=== PATIENT | male | born 1955 | race Caucasian/White ===

== ENCOUNTER 2016-09-27 14:28 | Observation (INO) | payer OTHER ==
[~2016-09-27] VITALS: Ht 170.2 cm; Wt 94.1 kg
[2016-09-27 14:44] VITALS: BP 105/51; PULSE 61; RESP 20; O2SAT 96
--- NOTE | 2016-09-27 15:03 | ED.REPORT ---
HPI-Chest Pain 40 and Over Date of Service Sep 27, 2016 ED Provider: Erick Mckeon MD This is a 61 year old male with a history of UT, atrial fibrillation, CABG, DM, HTN, hyperlipidemia presenting to the emergency department due to an episode of chest pain that occurred just prior to arrival and lasted approximately 20 minutes. Chest pain described as a dull ache. Patient was [facility] from [facility], he experienced CP there associated with mild dyspnea and weakness and was consequently sent to the ED. He adds that chest pain has been ongoing for the past two months. He experiences similar episodes intermittently. Denies nausea, vomiting, diaphoresis, or palpitations at this time. Nursing Notes Stated Complaint: CHEST PAIN Chief Complaint: Chest Pain Nursing Notes Reviewed: Yes Allergies: Coded Allergies: gentamicin (Verified Allergy, Unknown, 09/27/16) Scheduled Aspirin Chew (Aspirin Chew) 81 Mg Chew 81 MG PO HS Atorvastatin (Lipitor) 20 Mg Tablet 20 MG PO HS Escitalopram Oxalate (Escitalopram Oxalate) 20 Mg Tablet 10 MG PO QAM Glipizide (Glipizide) 5 Mg Tablet 2.5 MG PO QAM Isosorbide MN ER (Isosorbide MN ER) 60 Mg Tab.er.24h 30 MG PO QAM Lisinopril (Lisinopril) 5 Mg Tablet 5 MG PO QAM Metoprolol Tartrate (Metoprolol Tartrate) 25 Mg Tablet 25 MG PO BID Multivit with Calcium,Iron,Min (Therapeutic M) 1 Each Tablet 1 EACH PO DAILY [place]-3/Dha/Epa/Fish Oil (Fish Oil 1,000 mg Softgel) 1 Each Capsule 1 EACH PO BID Ubidecarenone (Coenzyme Q10) 200 Mg Capsule 200 MG PO BID Scheduled PRN Acetaminophen (Acetaminophen) 325 Mg Tablet 650 MG PO Q4H PRN PRN For Fever Omeprazole (Omeprazole) 20 Mg Capsule.dr 20 MG PO DAILY PRN PRN For Dyspepsia or Heartburn General Time Seen by MD: 14:54 Chief Complaint Chest pain Hx Obtained From: Patient Arrived By: Walk-in Sudden in Onset?: Yes Onset Occurred: More than a week ago... (2 months) Symptom Duration: Since onset Severity: Current: Mild Pertinent Negative: Pt denies other symptoms Recent Healthcare: No recent doctor visit, No recent hospitalization Similar Sx Previous: No Risk Factors )( CAD Risk Stratification Diabetes mellitus Hyperlipidemia Hypertension Risk factors reviewed Past Medical History Past Medical History Atrial fibrillation UT Reports: Diabetes mellitus, Hyperlipidemia, Hypertension Past Surgical History CABG Ambulatory Status Independent Review of Systems Constitutional: Denies: Chills, Fever Cardiovascular: Reports: Chest pain GI: Denies: Abdominal pain, Nausea, Vomiting Skin: Denies Diaphoresis Neurologic: Denies: Headache Complete sys rev & neg: except as marked. Physical Exam Initial Vital Signs Vital Signs (First) Date Time Temp Pulse Resp B/P Pulse Ox O2 Delivery O2 Flow Rate FiO2 09/27/16 14:44 36.4 61 20 105/51 96 Room Air Initial VS: Reviewed Head / Eyes: Atraumatic, Normocephalic, PERRL ENT: Mucous membranes moist, Conjunctiva normal, No scleral icterus Neck: Supple, Non-tender, Full range of motion Extremities: Vascular intact, Neuro intact, No swelling, No tenderness Skin: Warm, Dry, No cyanosis Neurologic: Alert, Oriented, Nonfocal Psychiatric: Mood/affect normal, Behavior normal, Normal thought content General/Constitutional: Awake, Alert Respiratory / Chest: Breath sounds NL, Breath sounds = bilat, No respiratory distress, No rales, No rhonchi, No wheezing CP reproducible on palpation Cardiovascular: Heart rate NL, Regular rhythm, Heart sounds NL, No murmurs, Peripheral circulation NL, Pulses = bilaterally, No gross BP differential Abdomen: Soft, Non-tender, McBurney's non-tender, No guarding, No rebound, BS normoactive, No distention, No hernia, No palpable mass Interpretation & Diagnostics Lab Results Interpretation Result Diagram: 09/27/16 1455 09/27/16 1455 Test 09/27/16 14:55 White Blood Count 8.8th/mm3 (3.8-10.1) Red Blood Count 5.21mil/mm3 (4.40-5.80) Hemoglobin 15.0g/dL (13.8-17.2) Hematocrit 44.2% (41.0-50.0) Mean Corpuscular Volume 84.8fL (81-100) Mean Corpuscular Hemoglobin 28.8pg (27.0-35.0) Mean Corpuscular Hemoglobin Concent 33.9% (32.0-37.0) Red Cell Distribution Width 12.6% (12.3-15.4) Platelet Count 243bil/L (150-400) Neutrophils (%) (Auto) 59.5% (40-74) Lymphocytes (%) (Auto) 29.7% (14-46) Monocytes (%) (Auto) 8.4% (4-12) Eosinophils (%) (Auto) 1.5% (0-5) Basophils (%) (Auto) 0.7% (0-3) Sodium Level 138mEq/L (134-144) Potassium Level 4.2mEq/L (3.5-5.2) Chloride Level 99mEq/L (97-108) Carbon Dioxide Level 23mmol/L (18-29) Blood Urea Nitrogen 23mg/dL (8-27) Creatinine 0.86mg/dL (0.76-1.27) Estimat Glomerular Filtration Rate 96mL/min (>59) Glucose Level 153mg/dL (60-99) Calcium Level 9.5mg/dL (8.5-10.1) Magnesium Level 2.1mg/dL (1.6-2.6) Total Bilirubin 0.3mg/dL (0.0-1.2) Aspartate Amino Transf (AST/SGOT) 15U/L (0-50) Alanine Aminotransferase (ALT/SGPT) 27U/L (0-44) Alkaline Phosphatase 72U/L (25-160) Total Creatine Kinase 45U/L (21-232) Creatine Kinase MB 1.4ng/mL (0.0-10.4) Creatine Kinase MB % % (0.0-5.0) Troponin T < 0.010ug/L (0.0-0.011) Pro-B-Type Natriuretic Peptide 605.4pg/mL (0-210) Total Protein 7.1g/dL (6.4-8.4) Albumin 4.3g/dL (3.4-5.0) Thyroid Stimulating Hormone (TSH) 1.830uIU/mL (0.450-4.500) Hold Henriquez Top Tube Received (Received) ECG Interpretation ECG Interpretation: A-fib at a rate of 79 Time: 15:11 Interpreted by: ED physician X-Ray Chest Interpretation Chest Xray Interpretation: IMPRESSION: Negative chest. No acute cardiopulmonary process is evident. Dictated by: Jeet Paris M.D. on 09/27/2016 at 14:37 Approved by: Jeet Paris M.D. on 09/27/2016 at 14:38 Re-Eval/Medical Decision Med Decision/Clinical Course 61-year-old male history of CAD, 5 vessel bypass presenting with substernal chest pain earlier today with associated shortness of breath. EKG changes. First set troponins negative. We will admit for ACS rule out. 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 I, Dr. Mckeon personally performed the history, physical exam and medical decision-making; I reviewed and confirmed the accuracy of the information in the transcribed note. Signed by Naresh Knox, 09/27/2016 at 17:00. Erick Mckeon MD Sep 27, 2016 15:03 DUARTE BATISTA Sep 27, 2016 15:08
[2016-09-27 15:07] LABS: BASOPHILS % (AUTO) 0.7 % (0-3); EOSINOPHILS % (AUTO) 1.5 % (0-5); MONOCYTES % (AUTO) 8.4 % (4-12); Mean Corpuscular Hemoglobin 28.8 pg (27.0-35.0); Mean Corpuscular Volume 84.8 fL (81-100); NEUTROPHILS % (AUTO) 59.5 % (40-74); Platelet Count 243 bil/L (150-400)
--- NOTE | 2016-09-27 15:40 | DRSVH ---
PROCEDURE: X-RAY CHEST ONE VIEW, PORTABLE ([id number]) INDICATIONS: CHEST PAIN TECHNIQUE: One view of the chest was acquired. COMPARISON: None. FINDINGS: Surgical changes and devices: Postoperative changes are present related to a prior median sternotomy. Lungs and pleura: No pleural effusions or pneumothorax. Lungs are clear. Mediastinum: Mediastinal contours appear normal. Heart size is normal. Bones and chest wall: No suspicious bony lesions. Overlying soft tissues appear unremarkable. IMPRESSION: Negative chest. No acute cardiopulmonary process is evident. Dictated by: Jeet Paris M.D. on 09/27/2016 at 14:37 Approved by: Jeet Paris M.D. on 09/27/2016 at 14:38
[2016-09-27 15:45] LABS: Magnesium 2.1 mg/dL (1.6-2.6)
[2016-09-27 15:47] LABS: TROPONIN T < 0.010 ug/L (0.0-0.011)
[2016-09-27 16:25] VITALS: BP 108/47; PULSE 95; RESP 20; O2SAT 96
[2016-09-27] MEDS ORDERED: Senna-Docusate 8.6-50 mg Tablet PO PRN (16:25)
[2016-09-27] MEDS ORDERED: Polyethylene Glycol (PEG) 17 Gm Powder PO PRN (16:25)
[2016-09-27] MEDS ORDERED: Ondansetron 2 mg/mL 2 mL Inj IVPUSH PRN (16:25)
[2016-09-27] MEDS ORDERED: Alum-Mag Hydrox-Simeth 30 mL Suspension PO PRN (16:25)
[2016-09-27] MEDS: Sodium Chloride LOK Flush 10 mL Syringe IVFLUSH SCH (16:30)
[2016-09-27] MEDS ORDERED: OMEP20CA11 PO (16:55)
[2016-09-27] MEDS ORDERED: ESCI20TA38 PO (16:55)
[2016-09-27] MEDS ORDERED: ACET325T51 PO (16:55)
[2016-09-27] MEDS ORDERED: ISOS60TA2 PO (16:55)
[2016-09-27] MEDS ORDERED: LISI-571 PO (16:55)
[2016-09-27] MEDS ORDERED: GLPZ5T PO (16:55)
[2016-09-27] MEDS ORDERED: METO25TA6 PO (16:55)
[2016-09-27] MEDS ORDERED: OMEG-38 PO (16:55)
[2016-09-27] MEDS ORDERED: UBID200C PO (16:55)
[2016-09-27] MEDS ORDERED: ASPI81TA3 PO (16:55)
[2016-09-27] MEDS ORDERED: MULT-140 PO (16:55)
[2016-09-27] MEDS ORDERED: ATOR20TA PO (16:55)
--- NOTE | 2016-09-27 17:22 | PCM.HPMED ---
Subjective Date of Service Sep 27, 2016 Primary Provider: Admitting Physician: Felipe Trujillo MD Primary Care Physician: Other,Physician Attending Physician: Felipe Trujillo MD Chief Complaint: Chest pain History of Present Illness: This is a 61 years old male with past medical history: Artery disease status post bypass, hypertension, hypercholesterolemia, type II diabetes non- insulin-dependent, who presented on today via clinic complaining about of chest pain. This and stated chest pain has been going on on and off for approximately 2 -3 months . Chest pain is pressure-like, retrosternal, non radiating, associated with shortness of breath on exertion. He stated initially to chest pain was on exertion as well as shortness of breath but lately has been at rest s as well. From the patient was sent to the emergency room for further evaluation. An EKG done at the [place] [facility] show atrial fibrillation. Patient has a remote history of atrial fibrillation back in 2008 after his bypass surgery. 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 Patient has not had adequate follow-up for many years due to insurance issues. He was admitted at it a bit more than a year ago at [facility] in [place] after he had a syncopal episode, felt and has\d a laceration on his forehead. He does not have a good collection performed was done there about the syncope but he was told that one of the artery on his bypass is occluded. Patient does not recall whether he had a cardiac catheterization done at that time but he said he did not have a stent placed. Patient has multiple risk factors including personal history of coronary artery disease, hypercholesterolemia, diabetes, truncal obesity and noncompliance . He is being kept kept to the hospital to rule out ACS and for further workup for new onset atrial fibrillation. Review of Systems: Review of systems 12 points is negative except for chest pain as described above in history of present illness Allergies Coded Allergies: gentamicin (Verified Allergy, Unknown, 09/27/16) Home Medications Aspirin 81 mg orally daily, glipizide 10 mg orally daily, metoprolol 25 mg orally twice a day, is unable to nitrate ER 60 mg orally daily, simvastatin 20 mg orally daily, lisinopril 5 mg orally daily, esomeprazole 20 mg orally daily, CoQ10 1 tablet daily, multivitamin 1 tablet orally daily, escitalopram 20 mg orally daily PMH Atrial fibrillation Con artery disease status post CABG Diabetes mellitus, Hyperlipidemia, Hypertension Surgical History Bypass graft, Inguinal and umbilical hernia repair Family History Family history reviewed and is pertinent for coronary artery disease, hypertension and diabetes Social History Hx Alcohol Use: No Hx Substance Use: No Living Arrangement: with Family (patient lives with his and children) Exam Vital Signs Vital Sign - Last Date Time Temp Pulse Resp B/P Pulse Ox O2 Delivery O2 Flow Rate FiO2 09/27/16 16:25 95 20 108/47 96 Room Air 09/27/16 14:44 36.4 Exam General/Constitutional: Well-nourished male. In stretcher comfortably. Pleasant Head / Eyes: Atraumatic, Normocephalic, PERRL. sclera is anicteric ENT: Mucous membranes moist, no oral thrush. No bulging tympanic membrane Neck: Supple, Non-tender, Full range of motion. Trachea is midline. No JVD Chest: Normal respiratory efforts. No chest wall tenderness. Midline surgical scar compatible with history of open heart surgery Cardiovascular: S1, S2 irregular rate , no murmur, no gallop. No peripheral edema Lungs: Clear bilaterally to auscultation, No rhonchi, No wheezing Abdomen: Soft, nontender tender, non-distended. No palpable mass. Bowel sounds normal all quadrant Extremities: No edema, no cyanosis, no calf tenderness Skin: Warm, Dry, No rash, no ulcers Neurologic: Alert, Oriented, grossly nonfocal Psychiatric: Mood/affect normal, Behavior normal Lab and Diagnostics Result Diagram: 09/27/16 1455 09/27/16 1455 X-Rays, CTs and MRIs Chest X-ray reviewed ; : Negative chest. No acute cardiopulmonary process is evident. 12-lead ECG Atrial fibrillation Assessment & Plan 1. Chest pain r/o ACS : - Telemetry monitoring. EKG shows Atrial Fibrillation - Cardiac enzymes x 3 . 1st set is negative. - 12 leads EKG for worsening chest pain or recurrent chest pain - Sublingual nitroglycerine for chest pain . - Continue Aspirin, beta michelle and statins from home medications - Stress test in AM . - Lipid profile , TSH, Hb A1c . - 2. Atrial Fibrillation : New onset / - Patient has a remote brief history of atrial fibrillation following cardiac bypass surgery in 2008 and was on Coumadin for a brief period of time . - Will obtain echocardiography . - Start Lovenox subcutaneously . Rate is under control. - Will consult cardiology 3. H/o CAD s/p CABG Patient did not have proper follow up for several years beyond hospitalization . the last time for a syncopal episode at [facility] in [place] . He was told one of his artery his by pass graft was completely blocked . He is unsure about if he had cardiac cath though . Continue ASA , statins and BB for medications 4. Type II Diabetes , non insulin dependent . - His blood sugar seems to be controlled with glipizide . Per patient last A1c was around 7 . some months ago. ? -A1c is pending . - Diabetic diet and start low sliding scale insulin. 5. Hypercholesterolemia : on statins - Lipid profile pending. Hemodynamically and clinically stable. This in an initial plan of care for now and will be adjusted per clinical course and per findings of the above tests . VTE Prophylaxis: Other (Therapeutic anticoagulation with Lovenox ) Resuscitation Status: CPR: Attempt Resuscitation Time spent 75 minutes Felipe Trujillo MD Sep 27, 2016 17:22
--- NOTE | 2016-09-27 17:22 | NUR ---
Admit Patient admitted to [facility] via richie, A/O x3. Denies any chest pain or tightness at this time. Ambulatory in his room, denies SOB. Oriented to room and unit. Made comfortable, will continue to monitor for any chest pain.
[2016-09-27 17:26] LABS: Creatine Kinase 45 U/L (21-232)
[2016-09-27 18:17] VITALS: PULSE 115
[2016-09-27 18:31] VITALS: BP 121/70; PULSE 87; RESP 20; O2SAT 95
[2016-09-27 20:00] VITALS: PULSE 94
[2016-09-27 20:07] VITALS: BP 114/72; PULSE 88; RESP 20; O2SAT 94
[2016-09-27] MEDS: Insulin Human REGular 300 Unit/3 mL Inj SUBQ SCH ×2 (20:30→21:08)
[2016-09-27 23:28] LABS: Creatine Kinase 37 U/L (21-232)
[2016-09-28 00:12] VITALS: BP 120/75; PULSE 88; RESP 22; O2SAT 95
[2016-09-28] MEDS: Sodium Chloride LOK Flush 10 mL Syringe IVFLUSH SCH ×3 (03:29→16:30)
[2016-09-28 04:31] VITALS: BP 134/88; PULSE 98; RESP 22; O2SAT 94
--- NOTE | 2016-09-28 06:34 | NUR ---
DENIES CHEST PAIN Patient has had no issues over night. Denies chest pain or SOB. Provided book on angina. Remains in Afib 80-90s.
[2016-09-28] MEDS: Insulin Human REGular 300 Unit/3 mL Inj SUBQ SCH ×3 (08:00→17:30)
[2016-09-28 08:44] VITALS: BP 143/77; PULSE 92; RESP 15; O2SAT 96
--- NOTE | 2016-09-28 08:53 | NUR ---
Stress Test Patient off to stress test at [facility].
[2016-09-28 10:20] VITALS: PULSE 98
--- NOTE | 2016-09-28 10:50 | NUR ---
Morning medications Notified Dr Erick Blair and aware patient 's morning medications held until patient gets back from stress test, will follow orders. Blood sugar 204 this morning and patient has been NPO, Hospitalist aware, orders to recheck blood sugar and follow sliding scale when back from stress test.
--- NOTE | 2016-09-28 11:01 | NUR ---
SW attempted to meet with Pt this morning for screening note, Pt at stress test. SW to follow up after testing is completed. SHALOM Ontiveros Rocket Assembly Operator
--- NOTE | 2016-09-28 11:24 | NUR ---
Social Work Note - Screening: D/A: The Pt is a 61 y/o male that was admitted under observation status for chest pain. Readmission Risk Score 2. The Pt's PCP is MD Alexander at the [facility] and his insurance is [employer]. EMR reviewed. SW met with the Pt to explain role and discuss discharge planning, SW telephone number written on white board. The Pt lives independently at home in [place] with his . The Pt does not have an Advanced Directive, paperwork provided. Cardiology involved. Stress test completed, results pending. The Pt denies any needs at this time, SW to follow if needs arise. P: The Pt is not medically ready for discharge at this time, stress test results pending. Pt likely to discharge home when ready with to providing POV transportation. The Pt denies any needs at this time, SW to follow if needs arise. Lorena Bolivar, PANTS MAKER Canal Driver
[2016-09-28 12:28] VITALS: BP 120/79; PULSE 85; RESP 15; O2SAT 96
--- NOTE | 2016-09-28 14:46 | DRSVH ---
[facility] [address] [place] [address] Echocardiogram Report Name: LUCI DILL JStudy Date: 09/28 Height: 66 in Hospital Exam Location: [facility] Weight: 207 lb Gender: Male BSA: 2.0 m2 : 1955 Age: 61 yrs BP: 134/88 mmHg Reason For Study: NEW ONSET A-FIB. Ordering Physician: HOSPITALIST [facility] Performed By: Bipin Iverson Referring Physician: DR. YANE CLAROS ([facility]) Interpretation Summary The left ventricle is normal in size. The ejection fraction is estimated to be 55-60%. The right ventricle is mildly dilated. The right ventricular systolic function is normal. There is moderate to severe mitral regurgitation. There is moderate tricuspid regurgitation. The right ventricular systolic pressure is estimated at 33 mmHg assuming a right atrial pressure of 8 mm Hg. Procedure: A two-dimensional transthoracic echocardiogram with color flow and Doppler was performed. The study quality was technically adequate. The apical views were difficult to obtain and are suboptimal in quality. The subcostal views were difficult to obtain and are suboptimal in quality. A contrast injection of Definity was performed to improve assessment of LV function. Contrast was injected into an intravenous site in the left arm. A total of 4 cc of contrast was given. There is no prior echocardiogram noted for this patient. The patient was in atrial fibrillation with controlled ventricular rate during the exam. The patient did well with the Definity Contrast. The heart rate ranged between 79-94 bpm during the study. Left Ventricle: The left ventricle is normal in size. Left ventricular wall thickness is mildly increased. Proximal septal thickening is noted. There is no echo evidence for significant left ventricular outflow tract obstruction. There is no thrombus. A false chord is noted (normal variant). The ejection fraction is estimated to be 55-60%. There is basal inferoseptal wall severe hypokinesis. There is basal inferior wall severe hypokinesis. Diastolic function could not be accurately assessed due to atrial fibrillation. Right Ventricle: The right ventricle is mildly dilated. The right ventricular systolic function is normal. Atria: The left atrium is moderately dilated. The right atrium is mildly dilated. There is no Doppler evidence for an atrial septal defect. Mitral Valve: The mitral valve leaflets appear mildly thickened, but open well. The mitral valve leaflets are mildly calcified. There is mild mitral annular calcification. There is moderate to severe mitral regurgitation. The mitral regurgitant jet is eccentrically directed. Aortic Valve: The aortic valve is trileaflet. The aortic valve opens well. The aortic valve is mildly calcified. There is no aortic valve stenosis. No aortic regurgitation is present. Tricuspid Valve: The tricuspid valve leaflets are thin and pliable. There is moderate tricuspid regurgitation. The right ventricular systolic pressure is estimated at 33 mmHg assuming a right atrial pressure of 8 mm Hg. Pulmonic Valve: The pulmonic valve leaflets are thin and pliable; valve motion is normal. There is mild pulmonic regurgitation. Great Vessels: The aortic root is normal size. The dimensions of the ascending aorta are normal. The pulmonary artery is normal size. The IVC is dilated (diameter is greater than 2.1 cm) yet it collapses greater than 50% with a sniff. This suggests a right atrial pressure of 8 mm Hg. Pericardium/ Pleura There is no pericardial effusion. There is an anterior echo-free space consistent with a fat pad. There is no pleural effusion. MMode/2D Measurements & Calculations LVIDd: 5.2 cm LA dimension: 4.9 cm RA long axis LVOT diam: 2.2 cm LVIDs: 3.7 cm AoV Opening FS: 28.6 % LA A2 area: 20.4 cm RA area EPSS: 0.69 cm LA A4 area: 22.4 cm Ao root diam IVSd: 1.2 cm LA length (vol) : 21.3 cm LVPWd: 1.3 cm RA vol Aortic Jxn: 2.6 cm LA vol: 57.6 ml : 71.0 ml asc Aorta Diam LA vol index RA : 35.0 mm2 Ao Arch Diam (Prox Trans): 2.9 cm IVC diam: 2.3 cm LV zamora. diameter/BSA LV sys. diameter/BSA (cm/m^2): 2.6 (cm/m^2): 1.8 Doppler Measurements & Calculations Ao V2 max MV E max pablo Med Peak E' Pablo TR max pablo : 139.7 cm/sec : 103.7 cm/sec : 250.6 cm/sec Ao max P.8 mmHg E/E' med: 8.4 TR max PG Ao mean P.4 mmHg MR ERO: 0.26 cm2 Lat Peak E' Pablo : 25.2 mmHg LVOT Max Pablo PA V2 max : 87.1 cm/sec E/E' lat: 7.0 : 113.8 cm/sec E/e' average: 7.7 PA mean PG LUIS FERNANDO(I,D): 2.4 cm sev ratio: 0.63 PA Accel Time : 0.08 sec Ao V2 mean LV V1 max PG MR flow rate PA V2 mean : 101.0 cm/sec : 74.3 cm/sec Ao V2 VTI: 24.4 cm LV V1 VTI: 15.3 cm: 135.5 cm3/sec MR PISA radius LUIS FERNANDO(V,D): 2.4 cm2 LUIS FERNANDO indexed to BSA (cm^2/m^2): 1.2 Reading Physician:PM
--- NOTE | 2016-09-28 16:04 | DRSVH ---
PROCEDURE: 1 DAY TREADMILL STRESS TEST Rest and exercise myocardial perfusion SPECT with gated imaging and ejection fraction RADIOPHARMACEUTICAL: 10.85 mCi Tc-99m tetrafosmin IV at rest and 32.1 mCi Tc-99m tetrafosmin IV at pe ak exercise. [id number] was performed. INDICATIONS: CHEST PAIN TECHNIQUE: Radiopharmaceutical was injected at peak stress test, and also at rest. SPECT images wer e obtained. SPECT myocardial perfusion images were displayed in short axis, horizontal long axis, an d vertical long axis views. Gated images were reviewed using AutoQUANT software. COMPARISON: None. CARDIAC STRESS: A standard Alex treadmill exercise tolerance test was performed by the patient under the supervision of an attending staff. The patient exercised for 4 minutes and 4 seconds; functional aerobic impair ment (DAVID) is +50 %. Hemodynamic data: There is normal blood pressure and heart rate response to exercise stress. Valdemar t achieved 104% of maximum predicted heart rate at peak exercise. Symptoms: Patient denied any chest pain during the treadmill study but did complain of flight weight ed and lightheadedness during the study. The patient's symptoms resolved during recovery. EKG: There were to [address] depressions along the lateral leads. FINDINGS: Raw data: There is good myocardial labeling by radiotracer. No significant motion artifacts. Left ventricle function: Gated images demonstrate hypokinesis along the inferior wall and possible a pical segments. The left ventricle resting end-diastolic volume is 137 mL. Left ventricle stress e jection fraction is 38%; normal values are above 45%. Myocardial perfusion: There is a mild perfusion defect along the basal and mid inferior wall which i s noted during the supine resting imaging. On the supine and prone stress images, there is a perfusio n defect with moderate intensity in the same segments. IMPRESSION: This is at least mildly abnormal myocardial perfusion study. There is a small to moderat e-sized perfusion defect that improves from stress to rest. Defect is most likely consistent with jey or small myocardial infarction with some evidence of abigail-infarct ischemia. There is also evidence fo r hypokinesis along the inferior wall and possibly apical segments and there is at least moderately r educed LVEF 38%. The patient stress EKG was mildly positive with ST changes. Patient denied any chest pain during the treadmill study but did have other complaints such as lightheadedness during the rubia admill study which resolved during the recovery stage. Clinical correlation is recommended to see pat ient should purse with more aggressive medical management versus a repeat cardiac catheterization. Dictated by: Rajan Feliciano Jr., M.D. on 09/28/2016 at 15:54 Approved by: Rajan Feliciano Jr., M.D. on 09/28/2016 at 16:03
[2016-09-28 16:13] VITALS: BP 118/80; PULSE 94; RESP 15; O2SAT 96
--- NOTE | 2016-09-28 16:55 | PCM.DIMED ---
Discharge Instructions Date of Service Sep 28, 2016 Dates of Hospitalization Sep 27, 2016 at 16:28 Discharge Diagnosis Discharge Diagnosis 1. Chest pain: Cardiac stress test showed evidence of mild ischemia. This is NOT a heart attack, but may be evident of heart disease. Further evaluation is needed, FU with PCP for referral to cardiology. Likely cardiac stress testing will be required. 2. Atrial fibrillation: Initially noted on PCP office, and has persistent today. Plan for close FU. As we are not sure of insurance coverage related to various anticoagulation agent, and the condition is of new onset, it is not unreasonable to delay initiation of anticoagulation therapy for another 1-2 days. If there is any difficulty scheduling FU or obtaining anticoagulation please call hospital to contact me (Dr Garcia, Red team). 3. Hypertension: Remains in reasonable control. Recent change in BP medications may require further adjustment. Test Results Date of Service: 09/28/16 0809 PROCEDURE: 1 DAY TREADMILL STRESS TEST Rest and exercise myocardial perfusion SPECT with gated imaging and ejection fraction RADIOPHARMACEUTICAL: 10.85 mCi Tc-99m tetrafosmin IV at rest and 32.1 mCi Tc- 99m tetrafosmin IV at peak exercise. [id number]-[id number] was performed. INDICATIONS: CHEST PAIN IMPRESSION: This is at least mildly abnormal myocardial perfusion study. There is a small to moderate-sized perfusion defect that improves from stress to rest. Defect is most likely consistent with prior small myocardial infarction with some evidence of abigail-infarct ischemia. Dictated by: Rajan Feliciano Jr., M.D. on 09/28/2016 at 15:54 Echocardiogram Report Reason For Study: NEW ONSET A-FIB. Ordering Physician: [facility] Performed By: Olive Iverson Referring Physician: DR. AKUA CLAROS ([facility]) Interpretation Summary The left ventricle is normal in size. The ejection fraction is estimated to be 55-60%. The right ventricle is mildly dilated. The right ventricular systolic function is normal. There is moderate to severe mitral regurgitation. There is moderate tricuspid regurgitation. The right ventricular systolic pressure is estimated at 33 mmHg assuming a right atrial pressure of 8 mm Hg. 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 Ag Garcia DO Sep 28, 2016 16:55
--- NOTE | 2016-09-28 17:04 | PCM.DC.MED ---
Discharge Summary Date of Service Sep 28, 2016 Dates of Hospitalization Date of Hospital Admission Sep 27, 2016 at 16:28 Date of Discharge: Sep 28, 2016 Providers: Admitting Physician: Felipe Trujillo MD Primary Care Physician: Other,Physician Attending Physician: Felipe Trujillo MD Diagnosis at Time of Discharge Diagnosis at Time of Discharge 1. Chest pain: Cardiac stress test showed evidence of mild ischemia. This is NOT a heart attack, but may be evident of heart disease. Further evaluation is needed, FU with PCP for referral to cardiology. Likely cardiac stress testing will be required. 2. Atrial fibrillation: Initially noted on PCP office, and has persistent today. Plan for close FU. As we are not sure of insurance coverage related to various anticoagulation agent, and the condition is of new onset, it is not unreasonable to delay initiation of anticoagulation therapy for another 1-2 days. If there is any difficulty scheduling FU or obtaining anticoagulation please call hospital to contact me (Dr Garcia, Red team). 3. Hypertension: Remains in reasonable control. Recent change in BP medications may require further adjustment. Procedures XRay, CTs & MRIs Chest X-ray reviewed ; : Negative chest. No acute cardiopulmonary process is evident. ECG 12 Lead Atrial fibrillation Cardiac Echo Impression Echocardiogram Report Name: LUCI DILL JStudy Date: 0 09/28 Height: 66 in Hospital Exam Location: [facility] Weight: 207 lb Gender: Male BSA: 2.0 m2 : 1955 Age: 61 yrs BP: 134/88 mmHg Reason For Study: NEW ONSET A-FIB. Ordering Physician: [facility] Performed By: Bipin Iverson Referring Physician: DR. AKUA CLAROS ([facility]) Interpretation Summary The left ventricle is normal in size. The ejection fraction is estimated to be 55-60%. The right ventricle is mildly dilated. The right ventricular systolic function is normal. There is moderate to severe mitral regurgitation. There is moderate tricuspid regurgitation. The right ventricular systolic pressure is estimated at 33 mmHg assuming a right atrial pressure of 8 mm Hg. Invasive Procedures Patient Name: LUCI DILL MR#: [id number] Location: [facility] [place] Ordering Phys: Felipe Trujillo MD Date of Service: 09/28/16 0809 PROCEDURE: 1 DAY TREADMILL STRESS TEST Rest and exercise myocardial perfusion SPECT with gated imaging and ejection fraction RADIOPHARMACEUTICAL: 10.85 mCi Tc-99m tetrafosmin IV at rest and 32.1 mCi Tc- 99m tetrafosmin IV at peak exercise. [id number]-aav-cieyxpod was performed. INDICATIONS: CHEST PAIN TECHNIQUE: Radiopharmaceutical was injected at peak stress test, and also at rest. SPECT images were obtained. SPECT myocardial perfusion images were displayed in short axis, horizontal long axis, and vertical long axis views. Gated images were reviewed using [employer] software. COMPARISON: None. CARDIAC STRESS: A standard Alex treadmill exercise tolerance test was performed by the patient under the supervision of an attending staff. The patient exercised for 4 minutes and 4 seconds; functional aerobic impairment (DAVID) is +50 %. Hemodynamic data: There is normal blood pressure and heart rate response to exercise stress. Patient achieved 104% of maximum predicted heart rate at peak exercise. Symptoms: Patient denied any chest pain during the treadmill study but did complain of flight weighted and lightheadedness during the study. The patient's symptoms resolved during recovery. EKG: There were to [address] depressions along the lateral leads. FINDINGS: Raw data: There is good myocardial labeling by radiotracer. No significant motion artifacts. Left ventricle function: Gated images demonstrate hypokinesis along the inferior wall and possible apical segments. The left ventricle resting end- diastolic volume is 137 mL. Left ventricle stress ejection fraction is 38%; normal values are above 45%. Myocardial perfusion: There is a mild perfusion defect along the basal and mid inferior wall which is noted during the supine resting imaging. On the supine and prone stress images, there is a perfusion defect with moderate intensity in the same segments. IMPRESSION: This is at least mildly abnormal myocardial perfusion study. There is a small to moderate-sized perfusion defect that improves from stress to rest. Defect is most likely consistent with prior small myocardial infarction with some evidence of abigail-infarct ischemia. There is also evidence for hypokinesis along the inferior wall and possibly apical segments and there is at least moderately reduced LVEF 38%. The patient stress EKG was mildly positive with ST changes. Patient denied any chest pain during the treadmill study but did have other complaints such as lightheadedness during the treadmill study which resolved during the recovery stage. Clinical correlation is recommended to see patient should purse with more aggressive medical management versus a repeat cardiac catheterization. Dictated by: Rajan Feliciano Jr., M.D. on 09/28/2016 at 15:54 Approved by: Rajan Feliciano Jr., M.D. on 09/28/2016 at 16:03 Brief History This is a 61 years old male with past medical history: Artery disease status post bypass, hypertension, hypercholesterolemia, type II diabetes non- insulin-dependent, who presented on today via clinic complaining about of chest pain. This and stated chest pain has been going on on and off for approximately 2 -3 months . Chest pain is pressure-like, retrosternal, non radiating, associated with shortness of breath on exertion. He stated initially to chest pain was on exertion as well as shortness of breath but lately has been at rest s as well. From the patient was sent to the emergency room for further evaluation. An EKG done at the [place] clinic show atrial fibrillation. Patient has a remote history of atrial fibrillation back in 2008 after his bypass surgery. 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 Patient has not had adequate follow-up for many years due to insurance issues. He was admitted at it a bit more than a year ago at [facility] in [place] after he had a syncopal episode, felt and has\d a laceration on his forehead. He does not have a good collection performed was done there about the syncope but he was told that one of the artery on his bypass is occluded. Patient does not recall whether he had a cardiac catheterization done at that time but he said he did not have a stent placed. Patient has multiple risk factors including personal history of coronary artery disease, hypercholesterolemia, diabetes, truncal obesity and noncompliance . He is being kept kept to the hospital to rule out ACS and for further workup for new onset atrial fibrillation. Hospital Course 1. Chest pain r/o ACS : - Telemetry monitoring. EKG shows Atrial Fibrillation , which persisted through hospitlaization - Cardiac enzymes were negative X2. - 12 leads EKG demonstrated no evidence of acute MN - Stress testing demonstrated evidence of small amount of cardiac ischemia which was reversable, but based partly on conversation with interpreting provided Dr. Ochoa, not to the extent that acute intervention/ catheterization would be indicated. He recommended out patient evaluation. - Echo demonstrated normal EF of 55-60% (this decreased in stress test measurement but generally more accurate in echo), and no other signifcant wall motion abnormalities consistent with acute coronary syndrome. Pt was continued on home medications (recent changed) with plan to FU promptly with PCP for referral to [place] cardiology for further evaluation. Pt was offered continued stay and inpatient consultation, however given multiple factors and general medical stablity, elected for DC home with plan for prompt [facility]. 2. Atrial Fibrillation : New onset. Pt notes a remote ada of this condition as well, but it soon resolved. In the setting of recent medication changes including beta michelle transition, and short duration of condition <48 hours at this time, initiation of anticoagulation was deferred to out patient provider who may have better know[place]de [place], and if newer agent would be reasonable/affordable, or if warfarin instead should be best agent. I did attempt to call office of PCP Dr. Claros but was unable to reach her directly. Pt did not wish to remain in hospital overnight to allow for further communication prior to DC. Pt remained rate controlled through hospitalization. 3. H/o CAD s/p CABG. See above. 4. Type II Diabetes , non insulin dependent . Continue home medications. 5. Hypercholesterolemia : on statin, recentl transitioned to higher potency. 6. Hypertriglycerdiemia >500): Should be followed closely. May consider fibrate in out patient setting. Exam Vital Signs (Last) Date Time Temp Pulse Resp B/P Pulse Ox O2 Delivery O2 Flow Rate FiO2 09/28/16 16:13 36.5 94 15 118/80 96 Room Air Test 09/27/16 14:55 09/27/16 22:35 09/28/16 06:48 White Blood Count 8.8th/mm3 (3.8-10.1) Red Blood Count 5.21mil/mm3 (4.40-5.80) Hemoglobin 15.0g/dL (13.8-17.2) Hematocrit 44.2% (41.0-50.0) Mean Corpuscular Volume 84.8fL (81-100) Mean Corpuscular Hemoglobin 28.8pg (27.0-35.0) Mean Corpuscular Hemoglobin Concent 33.9% (32.0-37.0) Red Cell Distribution Width 12.6% (12.3-15.4) Platelet Count 243bil/L (150-400) Neutrophils (%) (Auto) 59.5% (40-74) Lymphocytes (%) (Auto) 29.7% (14-46) Monocytes (%) (Auto) 8.4% (4-12) Eosinophils (%) (Auto) 1.5% (0-5) Basophils (%) (Auto) 0.7% (0-3) Sodium Level 138mEq/L (134-144) Potassium Level 4.2mEq/L (3.5-5.2) Chloride Level 99mEq/L (97-108) Carbon Dioxide Level 23mmol/L (18-29) Blood Urea Nitrogen 23mg/dL (8-27) Creatinine 0.86mg/dL (0.76-1.27) Estimat Glomerular Filtration Rate 96mL/min (>59) Glucose Level 153mg/dL (60-99) Hemoglobin A1c 8.6% (4.8-5.6) Calcium Level 9.5mg/dL (8.5-10.1) Magnesium Level 2.1mg/dL (1.6-2.6) Total Bilirubin 0.3mg/dL (0.0-1.2) Aspartate Amino Transf (AST/SGOT) 15U/L (0-50) Alanine Aminotransferase (ALT/SGPT) 27U/L (0-44) Alkaline Phosphatase 72U/L (25-160) Pro-B-Type Natriuretic Peptide 605.4pg/mL (0-210) Total Protein 7.1g/dL (6.4-8.4) Albumin 4.3g/dL (3.4-5.0) Thyroid Stimulating Hormone (TSH) 1.830uIU/mL (0.450-4.500) Hold Henriquez Top Tube Received (Received) Total Creatine Kinase 37U/L (21-232) Creatine Kinase MB 1.1ng/mL (0.0-10.4) Creatine Kinase MB % % (0.0-5.0) Troponin T 0.010ug/L (0.0-0.011) Triglycerides Level 528mg/dL (0-149) Cholesterol Level 211mg/dL (100-199) LDL Cholesterol, Calculated 77.400mg/dL (0-99) VLDL Cholesterol 105.600mg/dL HDL Cholesterol 28mg/dL (>39) Cholesterol/HDL Ratio 7.54 (0.0-4.4) General: Oriented X3, Cooperative, No Acute Distress Mouth: Mucous Membr Moist/Avis Chest & Lungs: Chest Wall Normal Cardiovascular: No Murmurs/Rubs/Gallops, Other (Regular rhythm with irregular rate in 80's.) Extremities: No cyanosis/clubbing/edma bilat Neurological: Grossly Neurologically Intact Discharge Medications Discharge Medications Aspirin Chew (Aspirin Chew) 81 Mg Chew 81 MG PO HS (Reported) Atorvastatin (Lipitor) 20 Mg Tablet 20 MG PO HS (Reported) Escitalopram Oxalate (Escitalopram Oxalate) 20 Mg Tablet 10 MG PO QAM (Reported ) Glipizide (Glipizide) 5 Mg Tablet 2.5 MG PO QAM (Reported) Isosorbide MN ER (Isosorbide MN ER) 60 Mg Tab.er.24h 30 MG PO QAM (Reported) Lisinopril (Lisinopril) 5 Mg Tablet 5 MG PO QAM (Reported) Metoprolol Tartrate (Metoprolol Tartrate) 25 Mg Tablet 25 MG PO BID (Reported) Multivit with Calcium,Iron,Min (Therapeutic M) 1 Each Tablet 1 EACH PO DAILY ( Reported) Warren-3/Dha/Epa/Fish Oil (Fish Oil 1,000 mg Softgel) 1 Each Capsule 1 EACH PO BID (Reported) Ubidecarenone (Coenzyme Q10) 200 Mg Capsule 200 MG PO BID (Reported) As needed Acetaminophen (Acetaminophen) 325 Mg Tablet 650 MG PO Q4H PRN PRN For Fever ( Reported) Omeprazole (Omeprazole) 20 Mg Capsule.dr 20 MG PO DAILY PRN PRN For Dyspepsia or Heartburn (Reported) Followup Plan Follow-up plan Will FU with PCP, Dr Akua Claros of [place] in 1-2 ideally to reconsider anticoagulation therapy if Afib proves persistent, and obtain 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 Discharge Diet: Low fat, Low Sodium, Heart Healthy Discharge Activity: Limited until seen by PCP Time spent 55 minutes Vital Signs Vital Sign - Last Date Time Temp Pulse Resp B/P Pulse Ox O2 Delivery O2 Flow Rate FiO2 09/28/16 16:13 36.5 94 15 118/80 96 Room Air Intake and Output 09/27/16 09/27/16 09/28/16 Cumulative From/Thru 15:00 23:00 07:00 09/27/16 14:44 - 4/18/17 06:23 Intake Total 640 ml 640 ml Output Total 1000 ml 1000 ml Balance -360 ml -360 ml Intake Oral 640 ml 640 ml Output Urine Total 1000 ml 1000 ml # Voids 2 2 IVs and Medications Medications Reviewed: Medications were reviewed in detail Lab and Diagnostics Result Diagram: 09/27/16 1455 09/27/16 1455 Ag Gacria DO Sep 28, 2016 17:04
--- NOTE | 2016-09-28 18:11 | NUR ---
Discharge Dr. Suarez at bed side prior to discharge. Received orders for discharge and reviewed paperwork, discharge medications, and followups, care notes for chest pain, understood and signs discharge paperwork. Discontinued peripheral IV to right lower arm with put difficulty. patient prefer to go home with family by walking from room. patient left at 544 PM approx. .
== END 2016-09-28 17:50 | disposition home or self-care (01) ==
LOC: SED 14:28 → MOC 16:28
PROVIDERS: ADMIT Internal Medicine; ATTEND Internal Medicine
DX: R07.9 Chest pain, unspecified (principal); I24.8 Other forms of acute ischemic heart disease; I48.91 Unspecified atrial fibrillation; I25.10 Atherosclerotic heart disease of native coronary artery without angina pectoris; E11.9 Type 2 diabetes mellitus without complications; I10 Essential (primary) hypertension; E78.1 Pure hyperglyceridemia; E78.5 Hyperlipidemia, unspecified; I25.2 Old myocardial infarction; E66.8 Other obesity; Z68.32 Body mass index [BMI] 32.0-32.9, adult; Z79.84 Long term (current) use of oral hypoglycemic drugs; Z88.8 Allergy status to other drugs, medicaments and biological substances; Z95.1 Presence of aortocoronary bypass graft; Z79.82 Long term (current) use of aspirin
CPT/HCPCS: 71010; 78452; 80053; 80061; 82550; 82553; 83036; 83735; 83880; 84443; 84484; 85025; 93005; 93017; 99285; A9502; G0378; J1650; J1815; Q9957